=== PATIENT | male | born 1980 | race Two or more races ===

== ENCOUNTER 2019-12-28 04:25 | Emergency (ER) | payer SELFPAY ==
[~2019-12-28] VITALS: Ht 180.3 cm; Wt 99.8 kg
[2019-12-28] MEDS ORDERED: IBUPROFEN 400 MG TABLET PO ONE (04:30)
--- NOTE | 2019-12-28 04:31 | NUR ---
PT AAOX4. [employer] AND [employer] C/O R FOOT PAIN S/P TRIP AND FALL [employer]ESTER SILVICULTURE. PT PLACED IN BED ON MONITOR AND PULSE OX. VSS.
[2019-12-28] MEDS ORDERED: IBUPROFEN 400 MG TABLET ONE (04:34)
--- NOTE | 2019-12-28 05:37 | NUR ---
Patient discharged to home in stable condition. Written and verbal after care instructions given. Patient verbalizes understanding of instruction and rx. VSS. Pt ambulated out of E.D. vss.
--- NOTE | 2019-12-28 05:37 | NUR ---
Note undone in EDM - 12/28/19 at 0537 by EVICTOR IV removed. Catheter intact and site benign. Pressure and 4x4 applied to site. No bleeding noted.
[2019-12-28 05:59] VITALS: BP 143/76
== END 2019-12-28 05:30 | disposition home or self-care (01) ==
LOC: ER 04:28
DX: S91.331A Puncture wound without foreign body, right foot, initial encounter (principal); F41.9 Anxiety disorder, unspecified; W01.0XXA Fall on same level from slipping, tripping and stumbling without subsequent striking against object, initial encounter; Y93.02 Activity, running; Y92.89 Other specified places as the place of occurrence of the external cause; Y99.8 Other external cause status
CPT/HCPCS: 73630-TC